=== PATIENT | female | born 1990 | race Caucasian/White ===

== ENCOUNTER 2016-12-06 23:14 | Emergency (ER) | payer OTHER ==
[2016-12-06 23:41] VITALS: BP 122/58; PULSE 80; RESP 18; TEMP 99
--- NOTE | 2016-12-07 00:25 | ED ---
Female Urogenital HPI - General Chief complaint: Urogenital Stated complaint: Female Time Seen by Provider: 12/06/16 23:46 Source: patient, RN notes reviewed Mode of arrival: ambulatory Limitations: no limitations - History of Present Illness Initial comments: Patient is a 26-year-old female chief complaint of concern of anal warts. Patient reports that she's noticed a few over the past week but wasn't sure if that was actually warts. She comes emergency department to be sure. Patient states that she is only been sexually active with 2 partner and denies any history of anal sex. She states that she can also tell that she is getting bacterial vaginitis time. She states that she has a fishy odor. She states that she is not concerned for gonorrhea as well. 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 She denies any changes in urination or bowel movements. She denies any nausea vomiting, headache, fever, chills. Last Menstrual Period: 12/06/16 - Related Data Home Medications Medication Instructions Recorded Confirmed Amoxicillin 250 mg PO Q8H 12/06/16 12/06/16 metroNIDAZOLE 1% GEL [Metrogel 1%] 1 applic TOPICAL DAILY 12/06/16 12/06/16 Previous Rx's Medication Instructions Recorded Imiquimod 1 each TOPICAL WEEKLY #1 tube 12/07/16 metroNIDAZOLE 0.75% VAGINAL 1 applic VAGINAL BID #1 tube 12/07/16 [Metrogel Vaginal] Allergies Allergy/AdvReac Type Severity Reaction Status Date / Time cephalexin monohydrate AdvReac Vomiting Verified 01/24/16 17:43 [From Keflex] Review of Systems ROS Statement: Those systems with pertinent positive or pertinent negative responses have been documented in the HPI. ROS Other: All systems not noted in ROS Statement are negative. Past Medical History Additional Past Medical History / Comment(s): eustachian tube disorder (audio muffling and crackling), hypoglycemia, anemia, asthma (alb inhaler prn), abd issues with food allergies. History of Any Multi-Drug Resistant Organisms: None Reported Past Surgical History: Section Additional Past Surgical History / Comment(s): wisdom teeth at 17 yo Past Anesthesia/Blood Transfusion Reactions: No Reported Reaction Past Psychological History: No Psychological Hx Reported Smoking Status: Never smoker Past Alcohol Use History: Rare Past Drug Use History: None Reported - Past Family History Father Family Medical History: Hypertension Additional Family Medical History / Comment(s): crohns disease Mother Additional Family Medical History / Comment(s): hypoglycemic, osteopenia General Exam - General Exam Comments Initial Comments: Pleasant 26-year-old female. No acute distress. Limitations: no limitations General appearance: alert, in no apparent distress Head exam: Present: atraumatic, normocephalic, normal inspection Eye exam: Present: normal appearance, PERRL, EOMI. Absent: scleral icterus, conjunctival injection, periorbital swelling ENT exam: Present: normal exam, mucous membranes moist Neck exam: Present: normal inspection. Absent: tenderness, meningismus, lymphadenopathy Respiratory exam: Present: normal lung sounds bilaterally. Absent: respiratory distress, wheezes, rales, rhonchi, stridor Cardiovascular Exam: Present: regular rate, normal rhythm, normal heart sounds. Absent: systolic murmur, diastolic murmur, rubs, gallop, clicks GI/Abdominal exam: Present: soft, normal bowel sounds. Absent: distended, tenderness, guarding, rebound, rigid Rectal exam: Present: normal rectal tone. Absent: normal inspection (Evidence of fleshy protrusion consistent with genital warts.) External exam: Present: normal external exam Extremities exam: Present: normal inspection, full ROM, normal capillary refill. Absent: tenderness, pedal edema, joint swelling, calf tenderness Back exam: Present: normal inspection Neurological exam: Present: alert, oriented X3, CN II-XII intact Psychiatric exam: Present: normal affect, normal mood Skin exam: Present: warm, dry, intact, normal color. Absent: rash Course Vital Signs 12/06/16 23:36 Temperature 99.0 F Pulse Rate 80 Respiratory 18 Rate Blood Pressure 122/58 O2 Sat by Pulse 100 Oximetry Medical Decision Making - Medical Decision Making Patient is a 26-year-old [employer] chief complaint of concern genital warts. Patient reports that she's noticed them around her anal area. She reports she had diarrhea a few weeks ago and she noticed the first one. She has that she's noticed a few more in the past 2 weeks occur. She states she's never been diagnosed with anal warts and is unsure how to be treated for this. She also complains of a fishy odor and nose that she has bacterial vaginosis. Patient states that she usually uses MetroGel and his renal from her primary care provider. Patient states that she has no other concerns for sexually transmitted infections. She denies any changes in bowel movements or urination. Patient does have a physical exam consistent with genital warts. I discussed the patient needs to apply Childs ointment 3 times a week over the area. She also will be given information for the health department and pupils clinic in order to follow-up for her healthcare as she does have a lack of insurance. Patient understands the treatment plan will comply. Return parameters were discussed. Disposition Clinical Impression: Anal warts, BV (bacterial vaginosis) Disposition: HOME SELF-CARE Condition: Good Instructions: Genital Warts (ED) Additional Instructions: Patient advised to follow up with [facility]. Also no the health clinic. Return the emergency Department if any alarming signs or symptoms occur. Also follow- up with primary care provider. Prescriptions: Imiquimod 1 each TOPICAL WEEKLY #1 tube metroNIDAZOLE 0.75% VAGINAL [Metrogel Vaginal] 1 applic VAGINAL BID #1 tube Referrals: David Guevara MD [Primary Care Provider] - 1-2 days Penelope Ramirez MD [STAFF PHYSICIAN] - 1-2 days Time of Disposition: 00:20
== END 2016-12-07 00:35 | disposition home or self-care (01) ==
LOC: EC 23:14
DX: A63.0 Anogenital (venereal) warts (principal); N76.0 Acute vaginitis; Z79.2 Long term (current) use of antibiotics
CPT/HCPCS: 99283

== ENCOUNTER → 2017-05-14 | Outpatient (CLI) | payer OTHER | END | disposition home or self-care (01) | LOC: LABWHC1 11:36 | PROVIDERS: ATTEND Family Medicine | DX: Z00.00 Encounter for general adult medical examination without abnormal findings (principal); L70.0 Acne vulgaris | CPT/HCPCS: 36415; 82670; 83001; 84144; 84439; 84443 ==

== ENCOUNTER → 2019-10-17 | Outpatient (CLI) | payer OTHER ==
--- NOTE | 2019-10-18 14:35 | CT ---
EXAMINATION TYPE: CT sinus wo con DATE OF EXAM: 10/17/2019 COMPARISON: None HISTORY: Sinus congestion and headaches since ., Chronic sinusitis CT DLP: 612 mGycm. Automated Exposure Control for Dose Reduction was Utilized. TECHNIQUE: CT scan of the sinuses is performed without contrast, axial images are obtained, coronal r eformatted images are also reviewed. FINDINGS: The paranasal sinuses including the frontal, ethmoid, sphenoid, and maxillary sinuses bila terally are well-aerated without abnormal opacification. The ostiomeatal complex is patent bilateral ly on the coronal images. Mild deviation of the nasal septum. Gabi bullosa are small bilaterally. Temporomandibular joints intact. The globes are intact bilaterally. IMPRESSION: The sinuses are clear and the ostiomeatal complex is patent bilaterally.
== END ==
LOC: RADCTMAIN 14:31
PROVIDERS: ATTEND Otolaryngology
DX: J32.8 Other chronic sinusitis (principal)
CPT/HCPCS: 70486

== ENCOUNTER → 2020-04-21 | Outpatient (CLI) | payer OTHER | END | disposition home or self-care (01) | LOC: LABWHC1 10:22 | PROVIDERS: ATTEND Otolaryngology | DX: J30.89 Other allergic rhinitis (principal) | CPT/HCPCS: 36415 ==

== ENCOUNTER → 2020-08-25 | Outpatient (CLI) | payer OTHER | END | disposition home or self-care (01) | LOC: LABWHC1 15:59 | PROVIDERS: ATTEND Family Medicine | DX: R50.9 Fever, unspecified (principal); Z20.828 Contact with and (suspected) exposure to other viral communicable diseases | CPT/HCPCS: U0003; C9803 ==